=== PATIENT | female | born 1960 | race Caucasian/White ===

== ENCOUNTER → 2017-12-18 | Outpatient (CLI) | payer BC ==
--- NOTE | 2017-12-18 14:25 | Diagnostic Imaging Report ---
PROCEDURE: SOFT TISSUE HEAD/NECK US COMPARISON: None. INDICATIONS:Localized swelling, mass/lump TECHNIQUE: Grayscale and color Doppler ultrasound of the region of interest. FINDINGS: Evaluation of the right neck demonstrates at least 2 prominent lymph nodes measuring 0.7 x 0.5 x 0.6 centimeter and 0.9 x 0 5 x 1.1 cm. Lymph nodes are hypoechoic without a definitive fatty hilum. There are normal appearing lymph nodes are present in the left neck, measuring 0.7 x 0.2 x 0.5 cm. CONCLUSION: Subcentimeter lymph nodes in the right neck demonstrated slightly irregular morphology, but are within normal limits for size. These are most likely reactive, though there is a wide differential for regional lymphadenopathy. Recommend clinical surveillance with additional workup if they continue to enlarge, become painful, or there is absence of an underlying etiology for reactive lymphadenopathy. Dictated by: Mateus Colbert M.D. on 12/18/2017 at 14:27 Electronically approved by: Mateus Colbert M.D. on 12/18/2017 at 14:27
== END ==
LOC: US 11:18
PROVIDERS: ATTEND Family Medicine
DX: R22.1 Localized swelling, mass and lump, neck (principal); R92.2 Inconclusive mammogram
CPT/HCPCS: 76536